=== PATIENT | male | born 1940 | race Caucasian/White ===

== ENCOUNTER 2024-03-30 11:35 | Outpatient (REF) | payer OTHER, SELFPAY ==
[2024-03-30 13:12] LABS: Alanine Aminotransferase 12 U/L (0-40); Albumin Level 4.1 g/dL (3.5-5.0); Alkaline Phosphatase 49 U/L (39-117); Anion Gap 11 (12-20); Aspartate Amino Transferase 17 U/L (5-37); Bilirubin Direct 0.2 mg/dL (0.0-0.5); Bilirubin Total 0.6 mg/dL (0.0-1.0); Blood Urea Nitrogen 16 mg/dL (9-16); Calcium 9.4 mg/dL (8.4-10.2); Carbon Dioxide 27 mmol/L (22-29); Chloride 107 mmol/L (96-108); Estimated Glomerular Filt Rate > 60; Glucose Random 95 mg/dL (60-115); Potassium 4.2 mmol/L (3.3-5.1); Sodium 141 mmol/L (135-145); Total Protein 6.8 g/dL (6.5-8.0)
[2024-03-30 13:26] LABS: TSH reflex Free T4 0.92 uIU/mL (0.32-4.0)
[2024-03-30 13:42] LABS: Folate 8.5 ng/mL (> or = 4.0); Vitamin B12 814 pg/mL (200-900)
== END 2024-03-30 11:36 | disposition home or self-care (01) ==
LOC: HO.LAB 11:35
PROVIDERS: PCP Internal Medicine; Visit Provider Psychiatry & Neurology Neurology
DX: G31.84 Mild cognitive impairment of uncertain or unknown etiology (principal)
CPT/HCPCS: 36415; 80048; 80076; 82607; 82746; 84443

== ENCOUNTER 2025-03-14 09:42 | Outpatient (AMB) | payer OTHER, SELFPAY ==
--- NOTE | 2025-03-14 09:44 | A.OFFVIS_ITS ---
Intake Visit Reasons: 3 month MCI Allergies Penicillins Allergy (Unknown, Verified 03/14/25 09:49) Unknown Medication List - Last Reconciled 03/14/25 by Bindu Landis CNP donepezil 10 mg PO DAILY furosemide 40 mg PO DAILY lisinopril 10 mg PO DAILY losartan 50 mg PO DAILY memantine (Namenda) 10 mg PO BID 90 days metoprolol succinate ER 100 mg PO DAILY omeprazole 20 mg PO DAILY rosuvastatin 40 mg PO DAILY spironolactone 12.5 mg PO DAILY tamsulosin 0.8 mg PO BEDTIME warfarin 2 - 4 mg PO DAILY HPI Comments Details: 84-year-old man with hypertension, aortic valve replacement, afib, and pacemaker who noticed some decline in memory and difficulty keeping time beginning around 2022. He sometimes repeated himself, misplaced things, and occasionally felt a little confused when driving. He also noted some word finding difficulties and trouble remembering names. He has a Master's degree in social work. He retired in 07/2024. He was doing okay. Memory was about the same. He was driving okay with GPS, not getting lost. He was going for a walk almost every day with his dog, no falls. He was doing some reading for about an hour a day, reading the newspaper and magazine articles. Mood was so-so, some stress related to world events. Sleep was up and down. [facility] Medical History (Updated 03/14/25 @ 09:48 by Bindu Landis CNP) MCI (mild cognitive impairment) Review of Systems Const Denies chills, Denies daytime sleepiness, Denies difficulty sleeping, Denies fatigue, Denies fever(s), Denies frequent falls, Denies headache(s), Denies increased appetite, Denies poor appetite, Denies snoring, Denies weakness, Denies weight gain and Denies weight loss Eyes Denies loss of vision ENT Denies vertigo, Reports dizziness, Denies headache(s) and Denies neck pain Card Denies chest pain at rest, Denies chest pain with activity, Denies syncope, Denies leg edema, Denies palpitations, Denies dyspnea and Denies dyspnea on exertion Resp Denies cough, Denies dyspnea, Denies dyspnea on exertion and Denies snoring GI Denies abdominal pain, Denies constipation, Denies heartburn, Denies diarrhea and Denies nausea Reports urinary frequency, Denies urinary incontinence and Denies urinary urgency Musc Denies abnormal gait, Denies back pain, Denies myalgias, Denies arthralgias, Denies neck pain, Denies numbness and Denies tingling Neuro Denies abnormal gait, Denies vertigo, Reports dizziness, Denies syncope, Denies frequent falls, Denies headache(s), Denies lack of coordination, Denies loss of vision, Reports memory loss, Denies numbness, Denies Other visual disturbances, Denies restless legs, Denies seizure-like activity, Denies tingling, Denies paresthesias, Denies tremor(s) and Denies weakness Psych Reports anxiety, Denies depression, Denies auditory hallucinations, Reports memory loss and Denies visual hallucinations Endo Denies fatigue and Denies palpitations Physical Exam Const Other: General Appearance:? normal, in no acute distress. Heart:? S1, S2 normal, no murmurs. Lungs:? clear anteriorly and posteriorly. Musculoskeletal:? normal. Extremities:? no edema. Psych:? alert, as below. Neuro Other: Abnormal Neurological Findings:?MMSE 28/30? Mental Status: alert, as below. Cranial Nerves: Pupils are equal, round, and reactive to light. External ocular muscles are intact. Visual ansari are full, no ptosis. Face is symmetrical, no facial weakness or droop. Facial sensations are normal. Tongue protrudes in midline. Palate elevates symmetrically. Shoulder shrugging is normal Motor Examination: Normal muscle tone, bulk and strength. No atrophy or fasciculations. No drift of the extended upper extremities. DTR 2+. Plantars are flexor. Sensory Exam: Normal light touch, temperature, pinprick, vibration, and joint- position sensations. Rhomberg sign is absent. Coordination: No ataxia. No titubation. Upzaza-[id number], bfxp-bhff-lzax test, and rapid alternating movements were normal. Gait Exam: Within normal limits. Cerebellar Signs: [id number] is okay. Extrapyramidal System: No tremor, rigidity with normal facial expressions. No bradykinesia. No bradyphrenia. Normal arm swing and posture. No propulsion or retropulsion. Speech: Normal. MMSE Level of Consciousness: Alert. Orientation: Knows correct year, month, day and season. Does not know date. Knows correct city, county and state. Knows correct location and floor. Registration: Able to register 3 objects. Attention: Serial 7's performed accurately to 65 Recall: Able to recall 2 out of 3 objects. Language: Normal spontaneous speech, fluency, repetition, naming, comprehension, reading, and writing. Total Score: 28/30. Results Reviewed Results Reviewed: 04/18/2024 EEG: WNL 04/14/2024 CT: Mild atrophy and microvascular changes Assessment & Plan Assessment & Plan (1) MCI (mild cognitive impairment): Code(s): G31.84 - Mild cognitive impairment of uncertain or unknown etiology Category: Medical Plan: Continue donepezil 10mg 1 tablet with food. Continue memantine 10mg 1 tablet twice a day. Stay physically and socially active. Coding Level of Care Code Est Pt Level 4 (41669) Diagnoses MCI (mild cognitive impairment) G31.84
--- OUTSIDE RECORDS SUMMARY | 2025-03-14 10:07 | XMS_ITS | Clinical Summary ---
Author Organization [facility] Address [address] [place] [address] Care Team Providers Care Braze Operator Name Role Phone Joshua Blankenship Primary Care Provider [phone] Social History Tobacco Use Types Packs/Day Years Used Date Smoking Tobacco: Never Assessed Sex and Gender Information Value Date Recorded Sex Assigned at Not on file Legal Sex Male 11:02 AM EST Gender Identity Not on file Sexual Orientation Not on file Plan of Treatment Health Maintenance Due Date Last Done Comments DTaP/Tdap/Td (1 - Tdap) 1960 Pneumococcal 50+ years (1 of 1 - PCV) 1992 Zoster (Shingrix) (1 of 2) 1992 RSV (1 - 1-dose 75+ series) 2017 COVID-19 Vaccine (2023-2 5 season) 2024 Influenza (#1) 2025 HPV Vaccine (No Doses Required) Completed Hep A Aged Out No longer eligi ble based on patient's age to complete this topic Hep B Aged Out No longer eligi ble based on patient's age to complete this topic Hib Aged Out No longer eligi ble based on patient's age to complete this topic Meningococcal ACWY Aged Out No longer eligible based on patient's age to complete this topic Zoster (Zostavax) Discontinued Insurance [facility] MEDICARE PREFERRED HMO Care Teams Braze Operator Relationship Specialty Start Date End Date Joshua Blankenship [facility] [address] [place], [place] [id number] PCP - General Internal Medicine 08/09/14
--- OUTSIDE RECORDS SUMMARY | 2025-03-14 10:07 | XMS_ITS ---
Author Name [facility] Organization Unknown Care Team Organization Name Specialty Phone Email Start Date End Da te [facility] RAMONE HILL Primary Care 07/09/2022 4 [facility] LIZ PACK Primary Care 06/16/2022 03/27/20 24
--- OUTSIDE RECORDS SUMMARY | 2025-03-14 10:07 | XMS_ITS | Clinical Summary ---
Author Organization [facility] Address [address] [place] [address] Care Team Providers Care Accounts Receivable Analyst Name Role Phone Edu Olivier MD Primary Care Provider Unavailab le Allergies Active Allergy Reactions Criticality Noted Date Comments Penicillins 12/11/2011 Other reaction(s): Rash/Dermatitis Medications Medication Sig Dispensed Refills Start Date End Date Status atorvastatin (LIPITOR) tablet 40 mg Take 40 mg by mouth daily. 0 Active warfarin (COUMADIN) 3 MG tablet Take 3 mg by mouth daily. 0 Active carvedilol (COREG) 12.5 MG tablet Take 12.5 mg by mouth 2 (two) times a day with meals. 0 Active aspirin 81 MG chewable tablet Chew 81 mg by mouth daily. 0 Active JANTOVEN 2 MG tablet 0 11/26/2018 Active spironolactone (ALDACTONE) tablet 25 mg 0 12/15/2018 Active omeprazole (PriLOSEC) 20 MG capsule 0 12/03/2018 Active metoprolol succinate (TOPROL-XL) 24 hr tablet 100 mg 0 12/03/2018 Active lisinopril (PRINIVIL,ZESTRIL) tablet 10 mg 0 12/12/2018 Active rosuvastatin (CRESTOR) tablet 40 mg Take 40 mg by mouth daily. 0 02/08/2021 Active predniSONE (DELTASONE) tablet 10 mg Start 6 tabs (Day 1), Then 5 Tabs (Day 2 ), then 4 Tabs (Day 3), then 3 Tabs (Day 4), Then 2 Tabs (Day 5) then 1 Tab (Day 6) 21 tablet 0 09/04/2021 Active Acetaminophen Extra Strength 500 MG tablet 0 12/09/2021 Active methocarbamol (ROBAXIN) 750 MG tablet 0 12/09/2021 Active Stimulant Laxative 8.6-50 MG 0 12/09/2021 Active clindamycin (CLEOCIN) 300 MG capsule Take 2 capsules 1 hour prior to dental appointment 10 capsule 2 12/23/2021 Active oxyCODONE (ROXICODONE) 5 MG immediate release tablet Take 1-2 tabs p.o. every 4-6 hours as needed for pain. Status post right total knee replacement. May fill for lesser quantity. 36 tablet 0 12/23/2021 Active metoprolol succinate (TOPROL-XL) 24 hr tablet 100 mg Take 1 tablet by mouth daily. 0 12/30/2021 Active tamsulosin (FLOMAX) 0.4 MG CAPS TAKE 1 CAPSULE BY MOUTH DAILY FOR 30 DAYS. TAKE 30 MINS AFTER SAME MEAL EVERY DAY. 0 01/22/2022 Active oxyCODONE (ROXICODONE) 5 MG immediate release tablet Take 1 tab every 8 hours as needed for pain 40 tablet 0 01/30/2022 Active vitamin B-12 (CYANOCOBALAMIN) tablet 1000 mcg TAKE 1 TABLET BY MOUTH 2 TIMES DAILY FOR 360 DAYS. 0 04/20/2022 Active Active Problems Problem Noted Date Diagnosed Date Tendinitis of long head of biceps brachii of lef t shoulder 11/28/2019 Prepatellar bursitis, right knee 07/26/2019 Knee stiffness, right 07/14/2017 Arthritis of right knee 05/12/2017 Family History Medical History Relation Name Comments Heart disease Mother Relation Name Status Comments Mother Social History Tobacco Use Types Packs/Day Years Used Date Smoking Tobacco: Former Alcohol Use Standard Drinks/Week Comments Yes 0 (1 standard drink = 0.6 oz pur e alcohol) Sex and Gender Information Value Date Recorded Sex Assigned at Not on file Gender Identity Not on file Sexual Orientation Not on file Job Start Date Occupation Industry Not on file Not on file Not on file Last Filed Vital Signs Vital Sign Reading Time Taken Comments Blood Pressure - - Pulse - - Temperature 36.3 C (97.3 F) 10/27/2019 11:42 AM EDT Respiratory Rate - - Oxygen Saturation - - Inhaled Oxygen Concentration - - Weight 77.1 kg (170 lb) 06/16/2022 9:34 AM EST Height 177.8 cm (5' 10 ) 06/16/2022 9:34 AM EST Body Mass Index 24.39 06/16/2022 9:34 AM EST Plan of Treatment Health Maintenance Due Date Last Done Comments COVID-19 Vaccine (#1) 02/13/1941 Depression Screening 1954 Preventative Health Evaluation 1960 DTap / Tdap / Td (1 - Tdap) 1961 Shingrix-Zoster Vaccine (1 o f 2) 1992 Fall Risk Assessment 2007 RSV Adult > 60+ Yrs or (1 - 1-dose 75+ series) 2017 Pneumococcal Vaccine (3 of 3 - PPSV23 or PCV20) 03/27/2020 03/27/2015, 08/09/2004 Influenza Vaccine (#1) 2025 8, 04/28/2017 Hepatitis B Vaccines Aged Out No long er eligible based on patient's age to complete this topic RSV Ped < 20 months Aged Out No longe r eligible based on patient's age to complete this topic Care Teams Accounts Receivable Analyst Relationship Specialty Start Date End Date Edu Olivier MD PCP - General Internal Medicine 12/14/18
== END 2025-03-14 10:03 | disposition home or self-care (01) ==
LOC: HO.HSM 09:43
PROVIDERS: PCP Internal Medicine; Referring Provider Internal Medicine; Visit Provider Registered Nurse
DX: G31.84 Mild cognitive impairment of uncertain or unknown etiology (principal)
CPT/HCPCS: 99214